=== PATIENT | female | born 1995 | race Caucasian/White ===

== ENCOUNTER 2021-02-08 03:40 | Emergency (ER) | payer BC ==
[~2021-02-08] VITALS: Ht 154.9 cm; Wt 84.1 kg
[2021-02-08 03:41] VITALS: BP 116/68
[2021-02-08 04:15] LABS: URINE HCG NEGATIVE (NEG)
== END 2021-02-08 04:34 ==
LOC: ER 03:40
DX: R10.84 Generalized abdominal pain (principal); F31.9 Bipolar disorder, unspecified; F12.90 Cannabis use, unspecified, uncomplicated; Z32.02 Encounter for pregnancy test, result negative; Z72.89 Other problems related to lifestyle; Z79.2 Long term (current) use of antibiotics; V87.7XXA Person injured in collision between other specified motor vehicles (traffic), initial encounter; Y93.89 Activity, other specified; Y92.89 Other specified places as the place of occurrence of the external cause; Y99.8 Other external cause status
CPT/HCPCS: 81025; 99283